=== PATIENT | male | born 1970 | race Caucasian/White ===

== ENCOUNTER 2023-12-02 04:26 | Day surgery (SDC) | payer OTHER ==
[2023-11-28 15:54] VITALS: BMI 28.7
[2023-12-02] MEDS ORDERED: BACITRACIN ZINC 15 GM TUBE TOPICAL OINTMENT ONE (12:36)
[2023-12-02] MEDS ORDERED: MIDAZOLAM HCL 2 MG/2 ML SINGLE DOSE VIAL ONE (12:48)
[2023-12-02] MEDS ORDERED: PROPOFOL 20 ML ONE ×2 (12:48→13:02)
[2023-12-02] MEDS ORDERED: ONDANSETRON 4 MG/2 ML VIAL ONE (12:49)
[2023-12-02] MEDS ORDERED: DEXAMETHASONE SOD PHOSPHATE 4 MG/1 ML VIAL ONE (12:49)
[2023-12-02] MEDS ORDERED: SEVOFLURANE 250 ML BTL ONE (12:49)
[2023-12-02] MEDS ORDERED: LIDOCAINE HCL/PF 2% SDV 5ML VIAL ONE (12:49)
[2023-12-02] MEDS ORDERED: METOCLOPRAMIDE HCL INJECTION 10 MG/2 ML VIAL ONE (12:49)
[2023-12-02] MEDS: ceFAZolin SODIUM 1 GM VIAL IVPB ONE ×2 (13:00)
[2023-12-02] MEDS ORDERED: ceFAZolin SODIUM 1 GM VIAL ONE (13:11)
[2023-12-02] MEDS ORDERED: KETOROLAC TROMETHAMINE 30 MG/1 ML VIAL ONE (13:17)
[2023-12-02] MEDS: BUPIVACAINE HCL/PF 0.25% (2.5MG/ML) 10 ML VIAL IJ ONE ×2 (13:30)
[2023-12-02] MEDS: LACTATED RINGERS SOLUTION 1,000 ML IV SCH (13:42)
[2023-12-02] MEDS ORDERED: ONDANSETRON 4 MG/2 ML VIAL IVPUSH PRN (13:46)
[2023-12-02] MEDS ORDERED: oxyCODONE HCL 5 MG TABLET PO PRN (13:46)
[2023-12-02] MEDS: ACETAMINOPHEN 1000 MG/100 ML BAG IVPB PRN (14:00)
[2023-12-02 14:52] VITALS: BP 117/71; PULSE 58; RESP 19; TEMP 97.1
== END 2023-12-02 15:22 | disposition home or self-care (01) ==
LOC: JASU-SURG 04:26
PROVIDERS: ATTEND Urology
PROC: 0VTTXZZ Resection of Prepuce, External Approach (ICD-10-PCS; principal; 2023-12-02 13:00)
DX: N47.1 Phimosis (principal)
CPT/HCPCS: 82962; 88304-TC; 94760; J0131